=== PATIENT | female | born 1995 | race African-American/Black ===

== ENCOUNTER 2019-10-27 14:23 | Emergency (ER) | payer OTHER, SELFPAY ==
[2019-10-27 14:34] VITALS: BP 118/66; PULSE 80; RESP 16; TEMP 36.8; O2SAT 100
--- NOTE | 2019-10-27 14:35 | ED.WOUNDLAC ---
HPI - Wound/Laceration General Chief Complaint: Wound/Laceration Stated Complaint: lt hand index finger laceration Time Seen by Provider: 10/27/19 14:35 Source: patient and RN notes reviewed Mode of arrival: ambulatory Limitations: no limitations History of Present Illness HPI narrative: 24 year old female who presents to [facility] care with complaints of laceration to her left distal index finger, thumb side, about 30 minutes prior to arrival. Patient states that she was cutting a sweet potato and lacerated the distal left index finger approximately 1cm linear at bottom edge of nail around side of finger with no injury to nailbed. Bleed controlled with application of pressure to wound. Patient states that Tetanus is up to date. Onset (ago): hour(s) (30 minutes prior to arrival) Location: other (left distal index finger) Extremity Location: Left: hand (left distal index finger) Place: home Patient tetanus UTD: Yes Context: accidental Associated symptoms: none Treatments prior to arrival: bandage Related Data Home Medications Medication Instructions Recorded Confirmed risperidone 0.5 mg PO HS 10/27/19 10/27/19 Allergies Allergy/AdvReac Type Severity Reaction Status Date / Time No Known Allergies Allergy Verified 10/27/19 14:37 Review of Systems Review of Systems: Narrative: CONSTITUTIONAL: Denies fever, chills, or sweats. EYES: Denies visual changes, redness, or discharge. ENT: Denies rhinorrhea, congestion, sore throat, or otalgia. CARDIOVASCULAR: Denies chest pain, palpitations, or edema. RESPIRATORY: Denies cough or dyspnea. GASTROINTESTINAL: Denies abdominal pain, nausea, vomiting, or diarrhea. GENITOURINARY: Denies dysuria or hematuria. SKIN: Denies rash or itching, laceration to distal left index finger thumb side. MUSCULOSKELETAL: Denies back pain, joint pain, or myalgia. NEUROLOGIC: Denies headache, numbness, or weakness. PSYCHIATRIC: Denies anxiety or depression. All systems reviewed & are unremarkable except as noted in HPI and below PMFSH Past Medical History Medical History (Updated 10/27/19 @ 17:25 by Amanda Moyer NP) Anxiety Social History Social History (Updated 10/27/19 @ 17:22 by Amanda Moyer NP) Smoking status: Never smoker Living arrangements: with family Occupation/Education: student Gender identity (if verbalized by the patient): Female Comments At time of signature, agree with nursing past medical, surgical, social history. There is no relevant family history pertinent to the presenting complaint Exam Narrative: Exam Narrative: GENERAL: Well-appearing, well-nourished, and in no acute distress. HEAD: Normocephalic, atraumatic. EYES: PERRLA and EOMI. ENT: Nares clear, no rhinorrhea or epistaxis. Mucous membranes moist. NECK: Supple.no lymphadenopathy CHEST: Clear to auscultation. No respiratory distress. HEART: Regular rate and rhythm. No murmur heard. Normal peripheral pulses. ABDOMEN: Soft, nontender, nondistended, normal active bowel sounds. EXTREMITIES: Normal range of motion. No edema. SKIN: Warm, dry, no rash.linear laceration to left index finger 1 cm in length requiring repair, movement sensation and circulation intact to her left index finger. NEURO: No focal deficits. Alert and oriented x3. Course Vital Signs Vital signs: Vital Signs Temperature 36.8 C 10/27/19 14:34 Pulse Rate 80 10/27/19 14:34 Respiratory Rate 16 10/27/19 14:34 Blood Pressure 118/66 10/27/19 14:34 Pulse Oximetry 100 10/27/19 14:34 Temperature 36.8 C 10/27/19 14:34 Pulse Rate 80 10/27/19 14:34 Respiratory Rate 16 10/27/19 14:34 Blood Pressure 118/66 10/27/19 14:34 Pulse Oximetry 100 10/27/19 14:34 Procedures Laceration left index: Date: 10/27/19 Time: 14:41 Site: other (index finger) Side (If applicable): left Size (cm): 1 Description: linear Depth: simple, single layer Local Anesthetic: l
== END 2019-10-27 15:14 | disposition home or self-care (01) ==
PROVIDERS: Emergency Provider Registered Nurse; PCP Internal Medicine
DX: S61.211A Laceration without foreign body of left index finger without damage to nail, initial encounter (principal); W45.8XXA Other foreign body or object entering through skin, initial encounter
CPT/HCPCS: 12001; 99202; G0463

== ENCOUNTER 2020-12-31 11:30 | Emergency (ER) | payer OTHER, SELFPAY ==
[2020-12-31 11:39] VITALS: BP 128/89; PULSE 122; RESP 16; TEMP 37.1; O2SAT 100
--- NOTE | 2020-12-31 12:33 | ED.URI ---
HPI - URI/Sore Throat General Chief Complaint: Upper Respiratory Infection Stated Complaint: sore throat Time Seen by Provider: 12/31/20 12:22 Source: patient and RN notes reviewed Mode of arrival: ambulatory Limitations: no limitations History of Present Illness HPI Narrative: Patient presents today complaining of a sore throat since this morning. Denies cough, congestion, rhinorrhea, or any additional symptoms. Denies any sick contacts. Currently rates her pain 5/10 and has tried no medication for symptoms prior to arrival. Patient states she was supposed to have her tonsils removed, but was scared at the last minute and did not have the procedure done. MD elicited complaint: sore throat Related Data Home Medications Medication Instructions Recorded Confirmed risperidone 0.5 mg PO HS 10/27/19 10/27/19 prazosin 12/31/20 quetiapine 12/31/20 Allergies Allergy/AdvReac Type Severity Reaction Status Date / Time No Known Allergies Allergy Verified 10/27/19 14:37 Review of Systems Review of Systems: CONSTITUTIONAL: Denies body aches, fever, chills, or sweats. EYES: Denies visual changes, redness, or discharge. ENT: Denies rhinorrhea, congestion, or otalgia.+ Sore throat CARDIOVASCULAR: Denies chest pain, palpitations, or edema. RESPIRATORY: Denies cough or dyspnea. GASTROINTESTINAL: Denies abdominal pain, nausea, vomiting, or diarrhea. GENITOURINARY: Denies dysuria or hematuria. SKIN: Denies rash, itching, or wounds. MUSCULOSKELETAL: Denies back pain, joint pain, or myalgia. NEUROLOGIC: Denies headache, numbness, tingling, or weakness. PSYCH: Denies depression or anxiety. PMFSH Past Medical History Medical History Anxiety Social History Social History Smoking status: Never smoker Gender identity (if verbalized by the patient): Female Comments At time of signature, I have reviewed and agree with nursing past medical, surgical, social and family history unless otherwise noted. Please see nursing chart for further information. There is no relevant family history pertinent to the presenting complaint Exam Narrative: GENERAL: Well-appearing, well-nourished, and in no acute distress. HEAD: Normocephalic, atraumatic. EYES: EOMI. No redness or drainage. Conjunctivae normal. ENT: Mucous membranes pink and moist. Nares clear. No rhinorrhea. TMs normal bilaterally. Throat erythematous without edema or exudate. Uvula midline. NECK: Normal AROM. Supple. No lymphadenopathy. CHEST: No respiratory distress. Clear to auscultation. HEART: Regular rate and rhythm. No murmur appreciated. Normal peripheral pulses. EXTREMITIES: Normal range of motion. No edema. SKIN: Warm, dry, no rash. Capillary refill normal. Normal skin turgor. NEURO: No focal deficits. Alert and oriented x3. Gait steady. PSYCH: Normal affect. No signs of depression or anxiety. Course Vital Signs Vital signs: Vital Signs Temperature 98.7 F 12/31/20 11:39 Pulse Rate 122 H 12/31/20 11:39 Respiratory Rate 16 12/31/20 11:39 Blood Pressure 128/89 12/31/20 11:39 Pulse Oximetry 100 12/31/20 11:39 Temperature 98.7 F 12/31/20 11:39 Pulse Rate 122 H 12/31/20 11:39 Respiratory Rate 16 12/31/20 11:39 Blood Pressure 128/89 12/31/20 11:39 Pulse Oximetry 100 12/31/20 11:39 Reviewed. Pt has been instructed to follow up with her PCP regarding her elevated blood pressure today. MDM - URI/Sore Throat Differential Diagnosis Differential diagnosis: Likely upper respiratory infection, otitis media, sinusitis, viral infection, pharyngitis and other (Strep throat) Lab Data Attestation: I reviewed the patient's lab results. Labs: Strep Screen Presumptive Negative *(Reference Range: Negative)* Critical Care Time Critical Care Time Critical
== END 2020-12-31 12:38 | disposition home or self-care (01) ==
PROVIDERS: Emergency Provider Nurse Practitioner; PCP Family Medicine
DX: J02.9 Acute pharyngitis, unspecified (principal)
CPT/HCPCS: 87081; 87880; 99213; G0463